=== PATIENT | female | born 1985 ===

== ENCOUNTER 2020-09-17 00:30 | Inpatient (IN) | payer BC ==
[2020-09-17] MEDS ORDERED: Terbutaline 1 MG/ML SDV SUBCUT PRN (00:35)
[2020-09-17] MEDS ORDERED: Sodium Chloride 0.9% 2.5 ML Syringe FLUSH PRN (00:35)
[2020-09-17] MEDS ORDERED: Water For Irrigation,Sterile 1,000 ML Container IRR PRN (00:35)
[2020-09-17] MEDS ORDERED: Tranexamic Acid 1,000 MG in Sodium Chloride 0.9% 100 ML IV PRN (00:35)
[2020-09-17] MEDS ORDERED: Methylergonovine 0.2 MG/1 ML Amp IM PRN (00:35)
[2020-09-17] MEDS ORDERED: Butorphanol 1 MG/ML SDV IVPUSH PRN (00:35)
[2020-09-17] MEDS ORDERED: Sodium Chloride 0.9% 10 ML SDV IV PRN (00:35)
[2020-09-17] MEDS ORDERED: Misoprostol 200 MCG Tab PO PRN (00:35)
[2020-09-17] MEDS ORDERED: Lidocaine 1% 50 ML MDV INJECT PRN (00:35)
[2020-09-17] MEDS ORDERED: Sodium Chloride 0.9% 10 ML Syringe FLUSH PRN (00:35)
[2020-09-17] MEDS ORDERED: Misoprostol 25 MCG (1/4 of 100 MCG) Tab VAG PRN ×2 (00:35)
[2020-09-17] MEDS ORDERED: Ondansetron 4 MG Tab.DIS PO PRN (00:35)
[2020-09-17] MEDS ORDERED: Ampicillin 2 GM in Sodium Chloride 0.9% 100 ML IV ONE (00:35)
[2020-09-17] MEDS ORDERED: Carboprost Tromethamine 250 MCG/1 ML Amp IM PRN (00:35)
[2020-09-17] MEDS ORDERED: hydrOXYzine Pamoate 25 MG Cap PO ONE (00:42)
[2020-09-17] MEDS ORDERED: Oxytocin/0.9 % Sodium Chloride 30 UNIT/500 ML BAG IV SCH ×2 (00:45)
[2020-09-17] MEDS: Lactated Ringers 1,000 ML IV SCH ×2 (01:21→10:39)
[2020-09-17] MEDS: Misoprostol 25 MCG (1/4 of 100 MCG) Tab PO PRN ×2 (01:30→06:32)
--- NOTE | 2020-09-17 02:49 | PCM.LDHP ---
L&D History of Present Illness - General Date of Service: 09/17/20 Admit Problem/Dx: Patient Status Order with Admit Dx/Problem 09/17/20 00:36 Patient Status [ADT] Routine Admission Diagnosis/Problem Admission Diagnosis/Problem 09/17/20 02:43 presenting to L&D for elective induction of labor at 38 5/7 weeks (ROSA MARIA: 09/25/20); AMA; A+, Rubella immune, GBS positive; vertex presentation confirmed by tom's; SVE 1-2cm/50%/-3, soft, posterior per nurse report 09/17/20 02:48 Source of Information: Patient History Limitations: Reports: No Limitations - Related Data Allergies/Adverse Reactions: Allergies Allergy/AdvReac Type Severity Reaction Status Date / Time hydrocodone Allergy Nausea and Verified 09/17/20 00:37 Vomiting Home Medications: Home Meds Dextroamphetamine/Amphetamine [Adderall] 3 tab PO DAILY 10/09/18 [History] Pnv No.95/Ferrous Fum/Folic AC [ Tablet] 1 tab PO DAILY 10/09/18 [History] Dextroamphetamine/Amphetamine [Adderall 20 mg Tablet] 1 tab PO TID 10/25/18 [History] Past Medical History - Past Health History Medical/Surgical History: Denies Medical/Surgical History Cardiovascular History: Reports: Other (See Below) Other Cardiovascular History: Tachycardia. 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 PIH Psychiatric History: Reports: ADHD Endocrine/Metabolic History: Reports: Obesity/BMI 30+ Hematologic History: Reports: Anemia - Past Surgical History Endocrine Surgical History: Reports: None Social & Family History - Family History Family Medical History: No Pertinent Family History - Caffeine Use Caffeine Use: Reports: None H&P Review of Systems - Review of Systems: Review Of Systems: See Below General: Reports: No Symptoms HEENT: Reports: No Symptoms Pulmonary: Reports: No Symptoms Cardiovascular: Reports: No Symptoms Gastrointestinal: Reports: No Symptoms Genitourinary: Reports: No Symptoms Musculoskeletal: Reports: No Symptoms Skin: Reports: No Symptoms Psychiatric: Reports: No Symptoms Neurological: Reports: No Symptoms Hematologic/Lymphatic: Reports: No Symptoms Immunologic: Reports: No Symptoms L&D Exam - Exam Exam: See Below - Vital Signs Weight: 208 lb - OB Specific Movement: Active Heart Tones: Present Heart Rate (FHR) Variability: Moderate (6-25 bmp) Presentation: Vertex - Keyes Score Keyes Score Cervix Position: Posterior Keyes Score Consistency: Soft Keyes Score Effacement: 31-50% Keyes Score Dilation: 1-2 cm Keyes Score Infant's Station: -3 Keyes Score Total: 4 - Exam General: Alert, Oriented, Cooperative Lungs: Normal Respiratory Effort Cardiovascular: Regular Rate, Regular Rhythm GI/Abdominal Exam: Soft, Non-Tender Rectal Exam: Deferred Genitourinary: Deferred Back Exam: Normal Inspection, Full Range of Motion Extremities: Normal Inspection, Normal Range of Motion, Non-Tender, Normal Capillary Refill Skin: Warm, Dry, Intact Neurological: Strength Equal Bilateral, Normal Speech, Normal Tone, Sensation Intact Psychiatric: Alert, Normal Affect, Normal Mood - Patient Data Lab Results Last 24 hrs: Laboratory Results - last 24 hr 09/17/20 09/17/20 09/17/20 Range/Units 01:02 01:02 01:07 WBC 7.65 (4.0-11.0) K/uL RBC 4.04 L (4.30-5.90) M/uL Hgb 11.9 L (12.0-16.0) g/dL Hct 36.0 (36.0-46.0) % MCV 89.1 (80.0-98.0) fL MCH 29.5 (27.0-32.0) pg MCHC 33.1 (31.0-37.0) g/dL RDW Std Deviation 40.2 (28.0-62.0) fl RDW Coeff of Kahlil 13 (11.0-15.0) % Plt Count 144 L (150-400) K/uL MPV 11.80 (7.40-12.00) fL Nucleated RBC % 0.0 /100WBC Nucleated RBCs # 0 K/uL SARS-CoV-2 RNA ([facility]) NEGATIVE (NEGATIVE) Blood Type A POSITIVE Antibody Screen NEGATIVE Result Diagrams: 09/17/20 01:02 - Problem List (1) AMA (advanced maternal age) multigravida 35+ SNOMED Code(s): 627654649 ICD Code: O09.529 - SUPERVISION OF ELDERLY MULTIGRAVIDA, UNSPECIFIED TRIME STER Status: Acute Priority: High Current Visit: Yes Qualifiers: Trimester: third trimester Qualified Code(s): O09.523 - Supervision of elderly multigravida, third trimester (2) Supervision of normal IUP (intrauterine ) in multigravida SNOMED Code(s): 760085757, 788495636, 923655629 ICD Code: Z34.80 - ENCOUNTER FOR SUPRVSN OF NORMAL , UNSP TRIMESTER Status: Acute Priority: High Current Visit: No Qualifiers: Trimester: third trimester Problem List Initiated/Reviewed/Updated: Yes Orders Last 24hrs: Active Orders 24 hr Category Date Time Status Patient Status [ADT] Routine ADT 09/17/20 00:36 Active Bedrest Bathroom Privileges [RC] ASDIRECTED Care 09/17/20 00:36 Active Communication Order [RC] ASDIRECTED Care 09/17/20 00:36 Active Communication Order [RC] ASDIRECTED Care 09/17/20 00:36 Active Communication Order [RC] ASDIRECTED Care 09/17/20 00:36 Active Heart Tones [RC] CONTINUOUS Care 09/17/20 00:36 Active Non Stress Test [RC] PER UNIT ROUTINE Care 09/17/20 00:36 Active May Shower [RC] ASDIRECTED Care 09/17/20 00:36 Active Notify Provider [RC] PRN Care 09/17/20 00:36 Active Notify Provider [RC] PRN Care 09/17/20 00:36 Active Notify Provider [RC] PRN Care 09/17/20 00:36 Active Notify Provider [RC] STAT Care 09/17/20 00:36 Active Oxygen Therapy [RC] ASDIRECTED Care 09/17/20 00:36 Active Up ad Melissa [RC] ASDIRECTED Care 09/17/20 00:36 Active Vaginal Exam [RC] PRN Care 09/17/20 00:36 Active Vaginal Exam [RC] PRN Care 09/17/20 00:36 Active Vital Signs [RC] PER UNIT ROUTINE Care 09/17/20 00:36 Active Vital Signs [RC] PER UNIT ROUTINE Care 09/17/20 00:36 Active Regular Diet [DIET] Diet 09/17/20 Breakfast Active RPR (SYPHILIS SERO) W/ RFLX [REF] Routine Lab 09/17/20 01:02 Received Butorphanol [Stadol] Med 09/17/20 00:35 Active 1 mg IVPUSH Q1H PRN Carboprost Tromethamine [Hemabate DS] Med 09/17/20 00:35 Active 250 mcg IM ASDIRECTED PRN Lactated Ringers [Ringers, Lactated] 1,000 ml Med 09/17/20 00:45 Active IV ASDIRECTED Lidocaine 1% [Xylocaine 1%] Med 09/17/20 00:35 Active 50 ml INJECT ONETIME PRN Methylergonovine [Methergine] Med 09/17/20 00:35 Active 0.2 mg IM ASDIRECTED PRN Ondansetron [Zofran ODT] Med 09/17/20 00:35 Active 4 mg PO Q6H PRN Oxytocin/0.9 % Sodium Chloride [Oxytocin 30 Unit/500 ML Med 09/17/20 00:45 Active -NS] 30 unit in 500 ml IV TITRATE Oxytocin/0.9 % Sodium Chloride [Oxytocin 30 Unit/500 ML Med 09/17/20 00:45 Active -NS] 30 unit in 500 ml IV TITRATE Sodium Chloride 0.9% [Normal Saline] Med 09/17/20 00:35 Active 10 ml IV ASDIRECTED PRN Sodium Chloride 0.9% [Saline Flush] Med 09/17/20 00:35 Active 10 ml FLUSH ASDIRECTED PRN Sodium Chloride 0.9% [Saline Flush] Med 09/17/20 00:35 Active 2.5 ml FLUSH ASDIRECTED PRN Terbutaline [Brethine] Med 09/17/20 00:35 Active 0.25 mg SUBCUT ASDIRECTED PRN Tranexamic Acid [Cyklokapron] 1,000 mg Med 09/17/20 00:35 Active Sodium Chloride 0.9% [Normal Saline] 100 ml IV ONETIME Water For Irrigation,Sterile [Sterile Water for Med 09/17/20 00:35 Active Irrigation] 1,000 ml IRR ASDIRECTED PRN miSOPROStoL [Cytotec] Med 09/17/20 00:35 Active 200 mcg PO ONETIME PRN miSOPROStoL [Cytotec] Med 09/17/20 09:00 Active 25 mcg PO BID miSOPROStoL [Cytotec] Med 09/17/20 01:25 Active 25 mcg PO Q4H PRN miSOPROStoL [Cytotec] Med 09/17/20 00:35 Active 25 mcg VAG ONETIME PRN Scalp Electrode [WOMSER] Per Unit Routine Oth 09/17/20 00:36 Ordered Medication Administration Instruction [OM.PC] Q3H Oth 09/17/20 00:45 Ordered Peripheral IV Insertion Adult [OM.PC] Routine Oth 09/17/20 00:36 Ordered Resuscitation Status Routine Resus Stat 09/17/20 00:35 Ordered Medication Orders Butorphanol Tartrate (Stadol) 1 mg IVPUSH Q1H PRN PRN Reason: Pain Carboprost Tromethamine (Hemabate Ds) 250 mcg IM ASDIRECTED PRN PRN Reason: Post Hemorrhage Oxytocin/Sodium Chloride (Oxytocin 30 Unit/500 Ml-Ns) 30 unit in 500 mls @ 999 mls/hr IV TITRATE JAMIE Tranexamic Acid 1,000 mg/ (Sodium Chloride) 110 mls @ 660 mls/hr IV ONETIME PRN PRN Reason: Bleeding Oxytocin/Sodium Chloride (Oxytocin 30 Unit/500 Ml-Ns) 30 unit in 500 mls @ 2 mls/hr IV TITRATE JAMIE; Protocol Lactated Ringer's (Ringers, Lactated) 1,000 mls @ 150 mls/hr IV ASDIRECTED JAMIE Last Admin: 09/17/20 01:21 Dose: 150 mls/hr Documented by: SHERYL Lidocaine HCl (Xylocaine 1%) 50 ml INJECT ONETIME PRN PRN Reason: Laceration repair Methylergonovine Maleate (Methergine) 0.2 mg IM ASDIRECTED PRN PRN Reason: Post Hemorrhage Misoprostol (Cytotec) 200 mcg PO ONETIME PRN PRN Reason: Post Hemorrhage Misoprostol (Cytotec) 25 mcg VAG ONETIME PRN PRN Reason: Cervical Ripening Last Admin: 09/17/20 01:22 Dose: 25 mcg Documented by: SHERYL Misoprostol (Cytotec) 25 mcg PO BID JAMIE Misoprostol (Cytotec) 25 mcg PO Q4H PRN PRN Reason: Cervical Ripening Last Admin: 09/17/20 01:30 Dose: 25 mcg Documented by: SHERYL Ondansetron HCl (Zofran Odt) 4 mg PO Q6H PRN PRN Reason: Nausea/Vomiting Sodium Chloride (Saline Flush) 10 ml FLUSH ASDIRECTED PRN PRN Reason: Keep Vein Open Sodium Chloride (Saline Flush) 2.5 ml FLUSH ASDIRECTED PRN PRN Reason: Keep Vein Open Sodium Chloride (Normal Saline) 10 ml IV ASDIRECTED PRN PRN Reason: IV Use Sterile Water (Sterile Water For Irrigation) 1,000 ml IRR ASDIRECTED PRN PRN Reason: delivery Terbutaline Sulfate (Brethine) 0.25 mg SUBCUT ASDIRECTED PRN PRN Reason: Tacysystole Assessment/Plan Comment:: Admit A: presenting to L&D for elective induction of labor at 38 5/7 weeks (ROSA MARIA: 09/25/20); AMA; A+, Rubella immune, GBS positive; vertex presentation confirmed by tom's; SVE 1-2cm/50%/-3, soft, posterior per nurse report P: Induction of labor; cytotec to pitocin; epidural PRN; Dr. Sams updated.
[2020-09-17] MEDS ORDERED: Ampicillin 1 GM in Sodium Chloride 0.9% 50 ML IV SCH ×2 (05:00→09:00)
[2020-09-17] MEDS ORDERED: Ampicillin 1 GM Vial ONE ×3 (05:11→05:42)
[2020-09-17] MEDS ORDERED: Ampicillin 2 GM AdvVial IV ONE (05:17)
[2020-09-17] MEDS ORDERED: Witch Hazel Medicated Pads 40/Jar TOP ONE (05:18)
[2020-09-17] MEDS ORDERED: Sodium Chloride 0.9% 50 ML ONE (05:43)
[2020-09-17] MEDS ORDERED: Misoprostol 25 MCG (1/4 of 100 MCG) Tab PO SCH (09:00)
[2020-09-17] MEDS ORDERED: Ropivacaine 0.2% PF 2 MG/ML 20 ML SDV ONE (10:07)
[2020-09-17] MEDS ORDERED: Bupivicaine/fentaNYL/NS 250 ML ONE (10:07)
--- NOTE | 2020-09-17 10:50 | PCM.PREANE ---
Preanesthetic Assessment - Procedure Proposed Procedure: labor epidural - Anesthesia/Transfusion/Family Hx Anesthesia History: Prior Anesthesia Without Reaction (Epidural dosed strongly near delivery last time and had a high block with difficulty breathing) Family History of Anesthesia Reaction: No Transfusion History: Prior Transfusion Without Reaction (transfusion with post delivery) Intubation History: Unknown - Review of Systems General: No Symptoms Pulmonary: No Symptoms Cardiovascular: No Symptoms Gastrointestinal: No Symptoms Neurological: No Symptoms Other: Reports: None - Physical Assessment Height: 5 ft 6 in Weight: 91.626 kg ASA Class: 2 Mental Status: Alert & Oriented x3 Airway Class: Mallampati = 1 Dentition: Reports: Normal Dentition Thyro-Mental Finger Breadths: 3 Mouth Opening Finger Breadths: 3 ROM/Head Extension: Full Lungs: Clear to Auscultation, Normal Respiratory Effort Cardiovascular: Regular Rate, Regular Rhythm - Lab Values: Laboratory Last Values WBC 7.65 K/uL (4.0-11.0) 09/17/20 01:02 RBC 4.04 M/uL (4.30-5.90) L 09/17/20 01:02 Hgb 11.9 g/dL (12.0-16.0) L 09/17/20 01:02 Hct 36.0 % (36.0-46.0) 09/17/20 01:02 MCV 89.1 fL (80.0-98.0) 09/17/20 01:02 MCH 29.5 pg (27.0-32.0) 09/17/20 01:02 MCHC 33.1 g/dL (31.0-37.0) 09/17/20 01:02 RDW Std Deviation 40.2 fl (28.0-62.0) 09/17/20 01:02 RDW Coeff of Kahlil 13 % (11.0-15.0) 09/17/20 01:02 Plt Count 144 K/uL (150-400) L 09/17/20 01:02 MPV 11.80 fL (7.40-12.00) 09/17/20 01:02 Nucleated RBC % 0.0 /100WBC 09/17/20 01:02 Nucleated RBCs # 0 K/uL 09/17/20 01:02 SARS-CoV-2 RNA ([facility]) NEGATIVE (NEGATIVE) 09/17/20 01:07 Blood Type A POSITIVE 09/17/20 01:02 Antibody Screen NEGATIVE 09/17/20 01:02 - Allergies Allergies/Adverse Reactions: Allergies Allergy/AdvReac Type Severity Reaction Status Date / Time hydrocodone Allergy Nausea and Verified 09/17/20 00:37 Vomiting - Blood Blood Available: Yes Product(s) Available: PRBC - Anesthesia Plan Pre-Op Medication Ordered: None - Acknowledgements Anesthesia Type Planned: Epidural Pt an Appropriate Candidate for the Planned Anesthesia: Yes Alternatives and Risks of Anesthesia Discussed w Pt/Guardian: Yes Pt/Guardian Understands and Agrees with Anesthesia Plan: Yes Additional Comments: last delivery vacuum with post hemorrhage PreAnesthesia Questionnaire - Past Health History Medical/Surgical History: Denies Medical/Surgical History Cardiovascular History: Reports: Other (See Below) Other Cardiovascular History: Tachycardia. 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 PIH Psychiatric History: Reports: ADHD Endocrine/Metabolic History: Reports: Obesity/BMI 30+ Hematologic History: Reports: Anemia - Past Surgical History Endocrine Surgical History: Reports: None - SUBSTANCE USE Tobacco Use Status *Q: Never Tobacco User Second Hand Smoke Exposure: No Recreational Drug Use History: No - HOME MEDS Home Medications: Home Meds Dextroamphetamine/Amphetamine [Adderall] 3 tab PO DAILY 10/09/18 [History] Pnv No.95/Ferrous Fum/Folic AC [ Tablet] 1 tab PO DAILY 10/09/18 [History] Dextroamphetamine/Amphetamine [Adderall 20 mg Tablet] 1 tab PO TID 10/25/18 [History] - CURRENT (IN HOUSE) MEDS Current Meds: Current Medications Butorphanol Tartrate (Stadol) 1 mg IVPUSH Q1H PRN PRN Reason: Pain Last Admin: 09/17/20 06:44 Dose: 1 mg Documented by: Carboprost Tromethamine (Hemabate Ds) 250 mcg IM ASDIRECTED PRN PRN Reason: Post Hemorrhage Oxytocin/Sodium Chloride (Oxytocin 30 Unit/500 Ml-Ns) 30 unit in 500 mls @ 999 mls/hr IV TITRATE JAMIE Tranexamic Acid 1,000 mg/ (Sodium Chloride) 110 mls @ 660 mls/hr IV ONETIME PRN PRN Reason: Bleeding Oxytocin/Sodium Chloride (Oxytocin 30 Unit/500 Ml-Ns) 30 unit in 500 mls @ 2 mls/hr IV TITRATE JAMIE; Protocol Lactated Ringer's (Ringers, Lactated) 1,000 mls @ 150 mls/hr IV ASDIRECTED JAMIE Last Admin: 09/17/20 10:39 Dose: 150 mls/hr Documented by: Ampicillin Sodium 1 gm/ Sodium (Chloride) 50 mls @ 100 mls/hr IV Q4H JAMIE Lidocaine HCl (Xylocaine 1%) 50 ml INJECT ONETIME PRN PRN Reason: Laceration repair Methylergonovine Maleate (Methergine) 0.2 mg IM ASDIRECTED PRN PRN Reason: Post Hemorrhage Misoprostol (Cytotec) 200 mcg PO ONETIME PRN PRN Reason: Post Hemorrhage Misoprostol (Cytotec) 25 mcg VAG ONETIME PRN PRN Reason: Cervical Ripening Last Admin: 09/17/20 01:22 Dose: 25 mcg Documented by: Misoprostol (Cytotec) 25 mcg PO BID JAMIE Misoprostol (Cytotec) 25 mcg PO Q4H PRN PRN Reason: Cervical Ripening Last Admin: 09/17/20 06:32 Dose: 25 mcg Documented by: Ondansetron HCl (Zofran Odt) 4 mg PO Q6H PRN PRN Reason: Nausea/Vomiting Sodium Chloride (Saline Flush) 10 ml FLUSH ASDIRECTED PRN PRN Reason: Keep Vein Open Sodium Chloride (Saline Flush) 2.5 ml FLUSH ASDIRECTED PRN PRN Reason: Keep Vein Open Sodium Chloride (Normal Saline) 10 ml IV ASDIRECTED PRN PRN Reason: IV Use Sterile Water (Sterile Water For Irrigation) 1,000 ml IRR ASDIRECTED PRN PRN Reason: delivery Terbutaline Sulfate (Brethine) 0.25 mg SUBCUT ASDIRECTED PRN PRN Reason: Tacysystole Discontinued Medications Ampicillin Sodium (Ampicillin) Confirm Administered Dose 1 gm .ROUTE .STK-MED ON E Stop: 09/17/20 05:12 Ampicillin Sodium (Ampicillin) Confirm Administered Dose 1 gm .ROUTE .STK-MED ONE Stop: 09/17/20 05:15 Ampicillin Sodium (Ampicillin) Confirm Administered Dose 2 gm IV .STK-MED ONE Stop: 09/17/20 05:18 Ampicillin Sodium (Ampicillin) Confirm Administered Dose 1 gm .ROUTE .STK-MED ONE Stop: 09/17/20 05:43 Hydroxyzine Pamoate (Vistaril) 50 mg PO ONETIME ONE Stop: 09/17/20 00:43 Ampicillin Sodium 2 gm/ Sodium (Chloride) 100 mls @ 200 mls/hr IV ONETIME ONE Stop: 09/17/20 01:04 Last Admin: 09/17/20 01:21 Dose: 200 mls/hr Documented by: Ampicillin Sodium 1 gm/ Sodium (Chloride) 50 mls @ 100 mls/hr IV Q4H JAMIE Last Admin: 09/17/20 05:53 Dose: 100 mls/hr Documented by: Sodium Chloride (Normal Saline) Confirm Administered Dose 50 mls @ as directed .ROUTE .STK-MED ONE Stop: 09/17/20 05:44 Fentanyl/Bupivacaine HCl (Fentanyl/Bupivacaine/Ns 2 Mcg-0.125% 250 Ml) Confirm Administered Dose 250 mls @ as directed .ROUTE .STK-MED ONE Stop: 09/17/20 10:08 Misoprostol (Cytotec) 25 mcg VAG Q4H PRN PRN Reason: Cervical Ripening Ropivacaine (Naropin 0.2%) Confirm Administered Dose 20 ml .ROUTE .STK-MED ONE Stop: 09/17/20 10:08 Sangeetha Garza (Sarahy) Confirm Administered Dose 1 pad TOP .STK-MED ONE Stop: 09/17/20 05:19
[2020-09-17] MEDS ORDERED: Benzocaine/Menthol 20%-0.5% Spray 78 GM Cannister TOP PRN (13:20)
[2020-09-17] MEDS ORDERED: Ibuprofen 800 MG Tab PO PRN (13:20)
[2020-09-17] MEDS ORDERED: Bisacodyl 10 MG Supp RECTAL PRN (13:20)
[2020-09-17] MEDS ORDERED: Acetaminophen 500 MG Tab PO PRN (13:20)
[2020-09-17] MEDS ORDERED: Docusate Sodium 100 MG Cap PO PRN (13:20)
[2020-09-17] MEDS ORDERED: Witch Hazel Medicated Pads 40/Jar TOP PRN (13:20)
[2020-09-17] MEDS ORDERED: oxyCODONE 5 MG Tab PO PRN (13:20)
[2020-09-17] MEDS ORDERED: Ibuprofen 400 MG Tab PO PRN (13:20)
[2020-09-17] MEDS ORDERED: Lanolin 100% Cream 7 GM Tube TOP PRN (13:20)
[2020-09-17] MEDS ORDERED: Ondansetron 4 MG/2 ML SDV IVPUSH ONE (13:28)
[2020-09-17] MEDS ORDERED: Oxytocin/0.9 % Sodium Chloride 0 UNIT/0 ML BAG ONE (13:45)
[2020-09-17] MEDS: Acetaminophen 500 MG Tab PO PRN (19:41)
[2020-09-18] MEDS: Acetaminophen 500 MG Tab PO PRN (04:41)
--- NOTE | 2020-09-18 08:33 | PCM.DCSUM1 ---
Discharge Summary - Hospital Course Free Text/Narrative:: Discharge home with baby. Follow up in the clinic in 6 weeks for routine visit; sooner, if needed. Diagnosis: Stroke: No Modified Raphael Scale: No Symptoms at All Modified [place] Scale Score: 0 - Discharge Data Discharge Date: 09/18/20 Discharge Disposition: Home, Self-Care 01 Condition: Good - Referral to Home Health Primary Care Physician: PCP None - Discharge Diagnosis/Problem(s) (1) AMA (advanced maternal age) multigravida 35+ SNOMED Code(s): 334463427 ICD Code: O09.529 - SUPERVISION OF ELDERLY MULTIGRAVIDA, UNSPECIFIED TRIMESTER Status: Acute Priority: High Current Visit: Yes Qualifiers: Trimester: third trimester Qualified Code(s): O09.523 - Supervision of elderly multigravida, third trimester (2) Supervision of normal IUP (intrauterine ) in multigravida SNOMED Code(s): 192445389, 557405905, 864451939 ICD Code: Z34.80 - ENCOUNTER FOR SUPRVSN OF NORMAL , UNSP TRIMESTER Status: Acute Priority: High Current Visit: No Qualifiers: Trimester: third trimester - Patient Instructions Diet: Usual Diet as Tolerated, Regular Diet as Tolerated, Drink 8-10+ Glasses/Day Activity: As Tolerated, No Strenuous Activities, Rest and Relax Today Driving: May Drive Today Showering/Bathing: May Shower Notify Provider of: Fever, Increased Pain, Swelling and Redness, Drainage, Na usea and/or Vomiting - Discharge Plan *PRESCRIPTION DRUG MONITORING PROGRAM REVIEWED*: Not Applicable *COPY OF PRESCRIPTION DRUG MONITORING REPORT IN PATIENT DAVID: Not Applicable Prescriptions/Med Rec: Ibuprofen [Motrin] 800 mg PO Q6H PRN #90 tablet PRN Reason: Pain Home Medications: Home Meds Dextroamphetamine/Amphetamine [Adderall] 3 tab PO DAILY 10/09/18 [History] Pnv No.95/Ferrous Fum/Folic AC [ Tablet] 1 tab PO DAILY 10/09/18 [History] Dextroamphetamine/Amphetamine [Adderall 20 mg Tablet] 1 tab PO TID 10/25/18 [History] Ibuprofen [Motrin] 800 mg PO Q6H PRN #90 tablet 09/18/20 [Rx] Oxygen Therapy Mode: Room Air - Discharge Summary/Plan Comment DC Time >30 min.: Yes - General Info Date of Service: 09/18/20 Admission Dx/Problem (Free Text: Patient Status Order with Admit Dx/Problem 09/17/20 00:36 Patient Status [ADT] Routine Admission Diagnosis/Problem Admission Diagnosis/Problem 09/17/20 02:43 presenting to L&D for elective induction of labor at 38 5/7 weeks (ROSA MARIA: 09/25/20); AMA; A+, Rubella immune, GBS positive; vertex presentation confirmed by tom's; SVE 1-2cm/50%/-3, soft, posterior per nurse report 09/17/20 02:48 Functional Status: Reports: Pain Controlled, Tolerating Diet, Ambulating, Urinating - Review of Systems General: Reports: No Symptoms HEENT: Reports: No Symptoms Pulmonary: Reports: No Symptoms Cardiovascular: Reports: No Symptoms Gastrointestinal: Reports: No Symptoms Genitourinary: Reports: No Symptoms Musculoskeletal: Reports: No Symptoms Skin: Reports: No Symptoms Neurological: Reports: No Symptoms Psychiatric: Reports: No Symptoms - Patient Data Vitals - Most Recent: Last Vital Signs Temp 97.3 F 09/18/20 06:10 Pulse 91 09/18/20 06:10 Resp 16 09/18/20 06:10 BP 111/66 09/18/20 06:10 Pulse Ox 97 09/18/20 06:10 Weight - Most Recent: 202 lb Lab Results - Last 24 hrs: Laboratory Results - last 24 hr 09/18/20 Range/Units 05:50 Hgb 10.9 L (12.0-16.0) g/dL Hct 33.6 L (36.0-46.0) % Med Orders - Current: Current Medications Acetaminophen (Tylenol Extra Strength) 500 mg PO Q4H PRN PRN Reason: Pain Acetaminophen (Tylenol Extra Strength) 1,000 mg PO Q4H PRN PRN Reason: Pain Last Admin: 09/18/20 04:41 Dose: 1,000 mg Documented by: Benzocaine/Menthol (Dermoplast Pain Relief 20%-0.5% [place]) 78 gm TOP ASDIRECTED PRN PRN Reason: Perineal Comfort Measure Last Admin: 09/17/20 13:59 Dose: 1 canister Documented by: Bisacodyl (Dulcolax) 10 mg RECTAL ONETIME PRN PRN Reason: Constipation Docusate Sodium (Colace) 100 mg PO BID PRN PRN Reason: Constipation Last Admin: 09/17/20 14:00 Dose: 100 mg Documented by: Emollient Ointment (Lansinoh Hpa) 0 gm TOP ASDIRECTED PRN PRN Reason: Sore Nipples Last Admin: 09/17/20 13:59 Dose: 1 gm Documented by: Ibuprofen (Motrin) 400 mg PO Q4H PRN PRN Reason: Pain Ibuprofen (Motrin) 800 mg PO Q6H PRN PRN Reason: Pain Oxycodone HCl (Oxycodone) 5 mg PO Q2H PRN PRN Reason: Pain Witch Kayla (Tucks) 1 pad TOP ASDIRECTED PRN PRN Reason: comfort care Last Admin: 09/17/20 13:59 Dose: 1 tub Documented by: Discontinued Medications Ampicillin Sodium (Ampicillin) Confirm Administered Dose 1 gm .ROUTE .STK-MED ONE Stop: 09/17/20 05:12 Ampicillin Sodium (Ampicillin) Confirm Administered Dose 1 gm .ROUTE .STK-MED ONE Stop: 09/17/20 05:15 Ampicillin Sodium (Ampicillin) Confirm Administered Dose 2 gm IV .STK-MED ONE Stop: 09/17/20 05:18 Ampicillin Sodium (Ampicillin) Confirm Administered Dose 1 gm .ROUTE .STK-MED ONE Stop: 09/17/20 05:43 Butorphanol Tartrate (Stadol) 1 mg IVPUSH Q1H PRN PRN Reason: Pain Last Admin: 09/17/20 06:44 Dose: 1 mg Documented by: Carboprost Tromethamine (Hemabate Ds) 250 mcg IM ASDIRECTED PRN PRN Reason: Post Hemorrhage Hydroxyzine Pamoate (Vistaril) 50 mg PO ONETIME ONE Stop: 09/17/20 00:43 Oxytocin/Sodium Chloride (Oxytocin 30 Unit/500 Ml-Ns) 30 unit in 500 mls @ 999 mls/hr IV TITRATE JAMIE Last Admin: 09/17/20 12:29 Dose: 999 mls/hr Documented by: Tranexamic Acid 1,000 mg/ (Sodium Chloride) 110 mls @ 660 mls/hr IV ONETIME PRN PRN Reason: Bleeding Oxytocin/Sodium Chloride (Oxytocin 30 Unit/500 Ml-Ns) 30 unit in 500 mls @ 2 mls/hr IV TITRATE JAMIE; Protocol Ampicillin Sodium 2 gm/ Sodium (Chloride) 100 mls @ 200 mls/hr IV ONETIME ONE Stop: 09/17/20 01:04 Last Admin: 09/17/20 01:21 Dose: 200 mls/hr Documented by: Lactated Ringer's (Ringers, Lactated) 1,000 mls @ 150 mls/hr IV ASDIRECTED [facility] Last Admin: 09/17/20 10:39 Dose: 150 mls/hr Documented by: Ampicillin Sodium 1 gm/ Sodium (Chloride) 50 mls @ 100 mls/hr IV Q4H [facility] Last Admin: 09/17/20 05:53 Dose: 100 mls/hr Documented by: Sodium Chloride (Normal Saline) Confirm Administered Dose 50 mls @ as directed .ROUTE .STK-MED ONE Stop: 09/17/20 05:44 Ampicillin Sodium 1 gm/ Sodium (Chloride) 50 mls @ 100 mls/hr IV Q4H [facility] Last Admin: 09/17/20 10:51 Dose: 100 mls/hr Documented by: Fentanyl/Bupivacaine HCl (Fentanyl/Bupivacaine/Ns 2 Mcg-0.125% 250 Ml) Confirm Administered Dose 250 mls @ as directed .ROUTE .STK-MED ONE Stop: 09/17/20 10:08 Oxytocin/Sodium Chloride (Oxytocin 30 Unit/500 Ml-Ns) Confirm Administered Dose 30 unit in 500 mls @ as directed .ROUTE .STK-MED ONE Stop: 09/17/20 13:46 Lidocaine HCl (Xylocaine 1%) 50 ml INJECT ONETIME PRN PRN Reason: Laceration repair Methylergonovine Maleate (Methergine) 0.2 mg IM ASDIRECTED PRN PRN Reason: Post Hemorrhage Misoprostol (Cytotec) 200 mcg PO ONETIME PRN PRN Reason: Post Hemorrhage Misoprostol (Cytotec) 25 mcg VAG ONETIME PRN PRN Reason: Cervical Ripening Last Admin: 09/17/20 01:22 Dose: 25 mcg Documented by: Misoprostol (Cytotec) 25 mcg VAG Q4H PRN PRN Reason: Cervical Ripening Misoprostol (Cytotec) 25 mcg PO BID JAMIE Misoprostol (Cytotec) 25 mcg PO Q4H PRN PRN Reason: Cervical Ripening Last Admin: 09/17/20 06:32 Dose: 25 mcg Documented by: Ondansetron HCl (Zofran Odt) 4 mg PO Q6H PRN PRN Reason: Nausea/Vomiting Ondansetron HCl (Zofran) 8 mg IVPUSH ONETIME ONE Stop: 09/17/20 13:29 Last Admin: 09/17/20 14:00 Dose: 8 mg Documented by: Ropivacaine (Naropin 0.2%) Confirm Administered Dose 20 ml .ROUTE .STK-MED ONE Stop: 09/17/20 10:08 Sodium Chloride (Saline Flush) 10 ml FLUSH ASDIRECTED PRN PRN Reason: Keep Vein Open Sodium Chloride (Saline Flush) 2.5 ml FLUSH ASDIRECTED PRN PRN Reason: Keep Vein Open Sodium Chloride (Normal Saline) 10 ml IV ASDIRECTED PRN PRN Reason: IV Use Sterile Water (Sterile Water For Irrigation) 1,000 ml IRR ASDIRECTED PRN PRN Reason: delivery Terbutaline Sulfate (Brethine) 0.25 mg SUBCUT ASDIRECTED PRN PRN Reason: Tacysystole Sangeetha Garza (Tucks) Confirm Administered Dose 1 pad TOP .STK-MED ONE Stop: 09/17/20 05:19 - Exam General: Reports: Alert, Oriented, Cooperative, No Acute Distress Lungs: Reports: Normal Respiratory Effort Cardiovascular: Reports: Regular Rate, Regular Rhythm GI/Abdominal Exam: Soft, Non-Tender (Female) Exam: Deferred Rectal (Female) Exam: Deferred Back Exam: Reports: Normal Inspection, Full Range of Motion Extremities: Normal Inspection, Normal Range of Motion, Non-Tender, Normal Capillary Refill Skin: Reports: Warm, Dry, Intact Neurological: Reports: No New Focal Deficit, Normal Speech, Normal Tone, Sensation Intact Psy/Mental Status: Reports: Alert, Normal Affect, Normal Mood
--- NOTE | 2020-09-18 09:05 | OR ---
SURGEON: Harshal Sams MD DATE OF PROCEDURE: 09/17/2020 Ms. Nicholson is multigravida. She is 35-year-old. She is term. She is primarily followed by our nurse box lidder service. She had no complication. Her GBS status is positive. The patient is admitted. She was started on appropriate antibiotic at the time of admission. She was 5 to 6 cm, and she had epidural anesthesia for labor analgesia. She continued to progress until complete, complete and 0 to +1 station. I was in attendance in delivery with Leticia Ramires, and patient started having decelerations into the 80s and 90s with contractions, not recovering completely. I evaluated the patient and felt to be in occiput posterior. The patient tried to push to rotate it but was unable, so I did kiwi vacuum extraction and it was not an easy extraction. Then, the head was partially rotated and she delivered without any problem a male fetus, cried immediately. score and weight are not available at the time of dictation. The placenta delivered spontaneous, complete, and intact. There was no perineal, labial, or vaginal laceration. Estimated blood loss is 350 to 400 mL. There was no complication in this labor and delivery process. MAIRA / MARY /[id number]
--- NOTE | 2020-09-18 09:13 | PCM48HPAN ---
Post Anesthesia Note - EVALUATION WITHIN 48HRS OF ANESTHETIC Vital Signs in Normal Range: Yes Patient Participated in Evaluation: Yes Respiratory Function Stable: Yes Airway Patent: Yes Cardiovascular Function Stable: Yes Hydration Status Stable: Yes Pain Control Satisfactory: Yes Nausea and Vomiting Control Satisfactory: Yes Mental Status Recovered: Yes Vital Signs: Last Vital Signs Temp 36.3 C 09/18/20 05:00 Pulse 91 09/18/20 05:00 Resp 16 09/18/20 05:00 BP 111/66 09/18/20 05:00 Pulse Ox 97 09/18/20 05:00
[2020-09-18 10:31] VITALS: BP 99/54; PULSE 90
== END 2020-09-18 15:24 | disposition home or self-care (01) | DRG 560 ==
LOC: MW.OBCHECK 00:30 → MW.OB 00:32 → OBSVTOIN 12:26 → MW.OB 12:26
PROVIDERS: ADMIT Obstetrics & Gynecology; ATTEND Obstetrics & Gynecology
PROC: 10D07Z6 Extraction of Products of Conception, Vacuum, Via Natural or Artificial Opening (ICD-10-PCS; principal; 2020-09-17)
PROC: 3E0R3BZ Introduction of Anesthetic Agent into Spinal Canal, Percutaneous Approach (ICD-10-PCS; 2020-09-17)
PROC: 00HU33Z Insertion of Infusion Device into Spinal Canal, Percutaneous Approach (ICD-10-PCS; 2020-09-17)
DX: O99.824 Streptococcus B carrier state complicating childbirth (principal); O99.214 Obesity complicating childbirth; E66.9 Obesity, unspecified; O76 Abnormality in fetal heart rate and rhythm complicating labor and delivery; Z79.899 Other long term (current) drug therapy; Z3A.38 38 weeks gestation of pregnancy; Z37.0 Single live birth; Z88.5 Allergy status to narcotic agent; Z20.828 Contact with and (suspected) exposure to other viral communicable diseases
CPT/HCPCS: 01967; 36415; 51702; 59025; 59409; 85014; 85018; 85027; 86592; 86850; 86900; 86901; A9270-GY; J0290; J0595; J2405; J2590; J7050; J7120; U0002